=== PATIENT | female | born 1960 | race Caucasian/White ===

== ENCOUNTER → 2017-01-29 | Outpatient (CLI) | payer OTHER ==
[2017-01-29 10:13] LABS: BLOOD UREA NITROGEN 17 mg/dL (7-22); BUN/CREATININE RATIO 24.28 (6-20); CALCIUM 9.1 mg/dL (8.7-10.7); EST GLOMERULAR FILTRATION > 60 (>60 ml/min/1.73m(2)); HDL CHOLESTEROL 45 mg/dL (40-150); SERUM ALBUMIN 3.8 g/dL (3.5-4.8); SERUM CHOLESTEROL 198 mg/dL (120-200)
[2017-01-29 10:20] LABS: BASOPHILS % (AUTO) 1.1 % (0-1); EOSINOPHILS % (AUTO) 6.2 % (0-8); HEMATOCRIT 44.4 % (37.0-47.0); HEMOGLOBIN 14.6 g/dL (12.0-16.0); MEAN CORPUSCULAR HEMOGLOBIN 30.7 PG (27-31); MEAN CORPUSCULAR HGB CONC 32.9 g/dL (33-37); MEAN CORPUSCULAR VOLUME 93.5 FL (81-99); MEAN PLATELET VOLUME 10.6 FL (7.4-12.2); MONOCYTES % (AUTO) 6.8 % (5-15); NEUTROPHILS % (AUTO) 52.2 % (50-80); RED BLOOD COUNT 4.75 10^6/uL (4.20-5.40)
[2017-01-29 10:21] LABS: EOSINOPHILS # (AUTO) 0.52 10*3/UL; LYMPHOCYTES # (AUTO) 2.82 10*3/uL; MONOCYTES # (AUTO) 0.57 10*3/UL (0.3-0.8); NEUTROPHILS # (AUTO) 4.39 10*3/UL
[2017-01-29 10:22] LABS: BASOPHILS # (AUTO) 0.09 10*3/UL; PLATELET MORPHOLOGY COMMENT NORMAL MORPHOLOGY (NORM); RBC MORPHOLOGY COMMENT NORMAL MORPHOLOGY (NORM); WBC MORPHOLOGY COMMENT NORMAL MORPHOLOGY (NORM)
== END ==
LOC: LAB 09:25
PROVIDERS: ATTEND Nurse Practitioner Family
DX: Z00.00 Encounter for general adult medical examination without abnormal findings (principal)
CPT/HCPCS: 80053; 80061; 84443; 85025